=== PATIENT | male | born 1995 | race Caucasian/White ===

== ENCOUNTER 2024-10-08 13:54 | Emergency (ER) | payer MEDICAID ==
[2024-10-08] MEDS ORDERED: Diphtheria,Pertussis(Acell),Tetanus Vaccine 0.5 ML Syringe IM ONE (13:56)
[2024-10-08] MEDS: Lidocaine 1% with EPINEPHrine 1:100,000 20 ML MDV INJECT ONE (14:06)
[2024-10-08] MEDS: Bacitracin Oint 28.35 GM Tube TOP ONE (14:06)
[2024-10-08] MEDS: Diphtheria/Tetanus Toxoids,Adult (Td) 0.5 ML Syringe IM ONE (14:33)
[2024-10-08 15:59] LABS: BASOPHILS ABSOLUTE AUTO 0.06 10^3/uL (0.00-0.50); BASOPHILS PERCENT AUTO 0.2 % (0-1); EOSINOPHILS ABSOLUTE AUTO 0.02 10^3/uL (0.00-1.50); EOSINOPHILS PERCENT AUTO 0.1 % (0-6); HEMATOCRIT 38.7 % (42.0-52.0); HEMOGLOBIN 13.3 g/dL (14.0-18.0); IMMATURE GRAN ABSOLUTE AUTO 0.09 10^3/uL (0.00-0.49); IMMATURE GRAN PERCENT AUTO 0.3 % (0.0-4.9); LYMPHOCYTES ABSOLUTE AUTO 3.15 10^3/uL (0.60-5.00); LYMPHOCYTES PERCENT AUTO 11.5 % (24-44); MEAN CORPUSCULAR HEMOGLOBIN 31.2 pg (27.0-32.0); MEAN CORPUSCULAR HGB CONC 34.4 g/dL (32.0-36.0); MEAN CORPUSCULAR VOLUME 90.8 fL (83.0-97.0); MONOCYTES ABSOLUTE AUTO 1.35 10^3/uL (0.00-1.50); MONOCYTES PERCENT AUTO 4.9 % (0-10); NEUTROPHILS ABSOLUTE AUTO 22.78 x10^3/uL (1.80-8.00); PLATELET COUNT,PLT 326 10^3/uL (150-400); RED BLOOD CELL COUNT 4.26 x10^6/uL (4.50-6.00)
[2024-10-08 16:01] LABS: WHITE BLOOD CELL COUNT,WBC 27.5 10^3/uL (4.0-11.0)
[2024-10-08] MEDS: Sodium Chloride 0.9% 500 ML IV SCH (16:16)
[2024-10-08 16:18] LABS: ALBUMIN 3.9 g/dL (3.4-5.0); BILIRUBIN TOTAL 0.7 mg/dL (0.0-1.0); CREATININE 1.2 mg/dL (0.7-1.3); EST CRCL DRUG DOSING (CG) 99.35 mL/min; POTASSIUM,K 4.3 mEq/L (3.5-5.0); PROTEIN TOTAL,TP 7.1 g/dL (6.4-8.2)
== END 2024-10-08 16:47 | disposition home or self-care (01) ==
LOC: CC.ED 13:54
DX: S51.811A Laceration without foreign body of right forearm, initial encounter (principal); S61.511A Laceration without foreign body of right wrist, initial encounter; S01.81XA Laceration without foreign body of other part of head, initial encounter; Z88.6 Allergy status to analgesic agent; Z91.040 Latex allergy status; Z79.899 Other long term (current) drug therapy; W22.8XXA Striking against or struck by other objects, initial encounter; Z23 Encounter for immunization
CPT/HCPCS: 12004; 12011; 36415; 73110-RT; 80053; 85025; 90471; 90714; 96360; 99283; 99283-25; A9270-GY; J2004; J7040